=== PATIENT | male | born 1960 ===

== ENCOUNTER 2016-09-06 14:49 | Emergency (ER) | payer BC ==
[2016-09-06 17:29] VITALS: BP 143/72
--- NOTE | 2016-09-06 17:59 | UC ---
Shoulder Pain HPI - HPI Summary HPI Summary: A few days ago woke with tender area on L anterior chest; pain spread and now he feels it under arm and especially in the back near L shoulder blade. Cannot get comfortable to sleep, has deep ache that feels like when he had ruptured disc in t-spine. No recent injury or surgery. Pt drives hours per day for work. - History of Current Complaint Chief Complaint: UCUpperExtremity Stated Complaint: SHOULDER PAIN Time Seen by Provider: 09/06/16 17:35 Hx Obtained From: Patient Onset/Duration: Gradual Onset, Lasting Days Timing: Constant Severity Initially: Mild Severity Currently: Severe Character: Dull, Aching, Spasmodic - behind shoulder blade Aggravating Factor(s): Movement Alleviating Factor(s): Rest Associated Signs And Symptoms: Positive: Negative Related History: Dominant Hand Right - Allergies/Home Medications Allergies/Adverse Reactions: Allergies Allergy/AdvReac Type Severity Reaction Status Date / Time No Known Allergies Allergy Verified 09/06/16 17:19 Home Medications: Home Medications Naproxen Sodium 440 mg PO Q12H PRN 09/06/16 [History Confirmed 09/06/16] PMH/Surg Hx/FS Hx/Imm Hx Previously Healthy: Yes - Surgical History Surgical History: Yes Surgery Procedure, Year, and Place: EYE SURGERY. UNDESTENDED TESTTICLE REMOVED -LEFT - Family History Known Family History: Positive: Hypertension - Social History Occupation: Employed Full-time Alcohol Use: Rare Substance Use Type: None Smoking Status (MU): Never Smoked Tobacco Review of Systems Constitutional: Negative Skin: Negative Eyes: Negative ENT: Negative Respiratory: Negative Cardiovascular: Negative Gastrointestinal: Negative Genitourinary: Negative Motor: Negative Neurovascular: Negative Musculoskeletal: Arthralgia, Myalgia Neurological: Negative Psychological: Negative All Other Systems Reviewed And Are Negative: Yes Physical Exam Triage Information Reviewed: Yes Appearance: Well-Appearing, Pain Distress - mild Vital Signs: Initial Vital Signs Temp 98.8 F 09/06/16 17:20 Resp 18 09/06/16 17:20 BP 143/72 09/06/16 17:20 Pulse Ox 97 09/06/16 17:20 Vital Signs Reviewed: Yes Eye Exam: Normal Eyes: Positive: Conjunctiva Clear ENT Exam: Normal ENT: Positive: Normal ENT inspection, Hearing grossly normal, Pharynx normal, TMs normal Dental Exam: Normal Neck exam: Normal Neck: Positive: Supple, Nontender, No Lymphadenopathy Respiratory Exam: Normal Respiratory: Positive: Lungs clear, Normal breath sounds, No respiratory distress, No accessory muscle use Cardiovascular Exam: Normal Cardiovascular: Positive: RRR, No Murmur Musculoskeletal Exam: Other - spurling test negative, tender over L upper paraspinal muscles, palpable muscle spasm by L shoulder blade Musculoskeletal: Positive: Strength Intact, ROM Intact - in neck and L shoudler Neurological Exam: Normal Neurological: Positive: Alert, Muscle Tone Normal Psychological Exam: Normal Skin Exam: Normal Shoulder Course/Dx - Differential Dx/Diagnosis Provider Diagnoses: L upper back muscle spasm. trigger point pain Discharge - Discharge Plan Condition: Stable Disposition: HOME Prescriptions: Cyclobenzaprine TAB* [Flexeril TAB*] 10 mg PO TID PRN #15 tab PRN Reason: Pain Indomethacin CAP* [Indocin CAP*] 25 - 50 mg PO TID PRN #40 cap PRN Reason: Pain Tizanidine HCl [Zanaflex] 2 mg PO TID PRN #30 cap PRN Reason: Pain traMADol TAB* [Ultram*] 50 mg PO Q6HR PRN #15 tab MDD 4 PRN Reason: Pain Patient Education Materials: Trigger Point Pain (ED), Muscle Spasm (ED) Additional Instructions: If the rest, medication, and warm packs do not give you some relief within a week, please see your primary care provider to discuss trigger point injection or to pursue further diagnostic testing.
== END 2016-09-06 18:03 | disposition home or self-care (01) ==
LOC: UCCORT 14:49
DX: M62.830 Muscle spasm of back (principal); M25.512 Pain in left shoulder
CPT/HCPCS: 99202; G0463